=== PATIENT | male | born 1990 | race Caucasian/White ===

== ENCOUNTER 2016-03-11 18:22 | Emergency (ER) | payer SELFPAY ==
[2016-03-11 18:34] VITALS: BMI 32.3
--- NOTE | 2016-03-11 20:31 | EDPRACDOC ---
- General Information Chief Complaint: Fever Stated Complaint: FEVER Time Seen by Provider: 03/11/16 20:27 Information Source: Patient Home Medications: Home Medications Amoxicillin Trihydrate [Amoxicillin] 500 mg PO TID #30 tab 03/11/16 Allergies/Adverse Reactions: Allergies Allergy/AdvReac Type Severity Reaction Status Date / Time No Known Allergies Allergy Verified 03/11/16 18:34 - History of Present Illness Onset: SEVERAL DAYS HPI: PT COMPLAINS OF SORE THROAT, FEVER TO 103, BODY ACHES FOR THE LAST SEVERAL DAYS , NO N/V/D, NO COUGH OR CONGESTION. USING TYLENOL WITH SOME RELIEF Sore Throat Symptoms: Reports: Pain, Hoarse White Spots Location: Reports: Pharynx Recent: Reports: None Relevant History of: Reports: None Pain Severity: Reports: Moderate Urinary Output: Normal Oral Intake: Normal Associated Signs and Symptoms: Reports: Fever, Nasal Symptoms. Denies: Rash, Cough, Earache, Abdominal Pain ED Past Medical History - History Reviewed Yes Nurses notes reviewed and agree except as marked No Past Medical History: Yes Patient has no past medical history - Social Medical History Smoking Status: Never smoker EDM Review of Systems - Review of Systems Constitutional: Fever Eyes: negative: Blurred Vision, Double Vision Ears: negative: Drainage Throat: Pain Nose: Congestion. negative: Discharge Respiratory: negative: Cough, Shortness of Breath, Wheezing Gastrointestinal: negative: Diarrhea, Nausea, Vomiting Neurological: Headache Integumentary: negative: Rash - Physical Exam Constitutional: Alert (Awake), No apparent distress Oriented to: Time, Person, Place Last recorded Vital Signs: Last Vital Signs Temp 102.1 F H 03/11/16 20:24 Pulse 84 03/11/16 20:24 Resp 20 03/11/16 20:24 BP 136/70 03/11/16 20:24 Pulse Ox 97 03/11/16 20:24 Oxygen Pulse Oxygen Saturation 97 O2 Device Room Air Oxygen Flow Rate Fraction of Inspired Oxygen ( FIO2) - HEENT Head: Normal ( normocephalic) Eye Exam: Normal (PERRL, EOMI, Sclera white) Oropharynx: Red, Tonsillar Hypertrophy, [place] Tympanic Membrane: Normal ENT EAC: Normal TMJ: Normal Nose: No Symptoms Reported (septum midline) Neck: Lymphadenopathy - Respiratory/Cardiovascular Respiratory: Normal - CTA (BBS clear to auscultation without adventitious sounds ) Cardiovascular: Normal (RRR without murmur, gallop or rub) - Integumentary Skin: Normal, Warm, Dry Lymphatics: Normal (no adenopathy) - Neurologic Memory Impaired: Normal Motor Function: Normal (Normal tone, Pulses 2+ No cyanosis or edema, FROM) Cranial Nerve: Normal (CN II-X11 intact sensation, strength 5/5) Cerebellar: Normal Mood Description: Normal Perception: Normal - Differential Diagnosis Pharyngitis Streptococcal, Pharyngitis Viral - Additional Information CLINICALLY PT HAS STREP THROAT Decision Time to Discharge: 20:31 - Departure Disposition: Home Condition: Stable Final Diagnosis: Acute pharyngitis Instructions: Fever in Adults (ED) Education/Counseling Given To: Patient Education/Counseling Given Regarding: Diagnosis, Treatment, Prognosis, Follow Up Referrals: Beatris Christensen MD [Staff Physician] - One Week Prescriptions: Amoxicillin Trihydrate [Amoxicillin] 500 mg PO TID #30 tab Forms: Excuse Note Additional Instructions: Rest, drink plenty of fluids, use Tylenol every 4 hours and Motrin every 6 hours as needed for pain or fever, return to the ED for any worsening symptoms or concerns.
[2016-03-11] MEDS ORDERED: AMOXICILLIN 500 MG CAP PO ONE (20:32)
[2016-03-11] MEDS ORDERED: IBUPROFEN 800 MG TAB PO ONE (20:32)
[2016-03-11] MEDS ORDERED: PENICILLIN G BENZATHINE 1.2 MIL UNITS TUBEX IM ONE (20:33)
[2016-03-11 21:28] VITALS: BP 137/64; PULSE 93; TEMP 99.1
== END 2016-03-11 21:25 | disposition home or self-care (01) ==
LOC: EDMC 18:22
DX: J02.9 Acute pharyngitis, unspecified (principal)
CPT/HCPCS: 96372; 99283; J0561; J3490